=== PATIENT | male | born 1970 | race Caucasian/White ===

== ENCOUNTER 2018-03-08 21:51 | Emergency (ER) | payer SELFPAY ==
[~2018-03-08] VITALS: Ht 182.9 cm; Wt 68.0 kg
[2018-03-08 21:56] VITALS: Ht 182.9 cm; Wt 68.0 kg
[2018-03-08] MEDS ORDERED: NORCO 5/325 TAB1 TAB PO (23:10)
[2018-03-08 23:43] VITALS: BP 117/68
== END 2018-03-08 23:43 | disposition home or self-care (01) ==
LOC: D.ER 21:51
DX: S01.21XA Laceration without foreign body of nose, initial encounter (principal); S01.81XA Laceration without foreign body of other part of head, initial encounter; Y04.2XXA Assault by strike against or bumped into by another person, initial encounter; Y93.89 Activity, other specified; Y92.019 Unspecified place in single-family (private) house as the place of occurrence of the external cause; F17.200 Nicotine dependence, unspecified, uncomplicated